=== PATIENT | male | born 1980 | race African-American/Black ===

== ENCOUNTER 2019-09-25 18:37 | Emergency (ER) | payer OTHER ==
[~2019-09-25] VITALS: Ht 182.9 cm; Wt 56.7 kg
[2019-09-25 18:40] VITALS: BP 128/80
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
--- NOTE | 2019-09-25 19:18 | NUR ---
Pt report given to CLEMENTINE Reddy. Transfer of care at this time.
--- NOTE | 2019-09-25 19:18 | NUR ---
ERMD AT BEDSIDE EVALUATING PT
--- NOTE | 2019-09-25 19:18 | NUR ---
Dr. Hunter examining patient.
[2019-09-25] MEDS ORDERED: KETOROLAC 60 MG/2 ML VIAL IM ONE (19:35)
--- NOTE | 2019-09-25 19:40 | NUR ---
PT TRANSPORTED TO [facility] VIA W/C.
--- NOTE | 2019-09-25 20:12 | NUR ---
ERMD AT BEDSIDE
--- NOTE | 2019-09-25 20:21 | NUR ---
pts left knee was placed in a carl wrap. pt was also given crutches. pt showed good use of crutches.
[2019-09-25 20:25] VITALS: BP 125/78
--- NOTE | 2019-09-25 20:25 | NUR ---
Patient discharged with v/s stable. Written and verbal after care instructions given and explained. Patient alert, oriented and verbalized understanding of instructions. Ambulatory with steady gait. All questions addressed prior to discharge. ID band removed. Patient advised to follow up with PMD. Rx of TRAMADOL AND MOTRIN given. Patient educated on indication of medication including possible reaction and side effects. Opportunity to ask questions provided and answered.
== END 2019-09-25 20:25 | disposition home or self-care (01) ==
LOC: MED 18:37
DX: S83.92XA Sprain of unspecified site of left knee, initial encounter (principal); I51.89 Other ill-defined heart diseases; J45.909 Unspecified asthma, uncomplicated; V19.9XXA Pedal cyclist (driver) (passenger) injured in unspecified traffic accident, initial encounter; Y93.I9 Activity, other involving external motion; Y92.89 Other specified places as the place of occurrence of the external cause; Y99.8 Other external cause status
CPT/HCPCS: 73562; 96372; 99283; J1885

== ENCOUNTER 2021-01-05 07:05 | Emergency (ER) | payer OTHER ==
[~2021-01-05] VITALS: Ht 182.9 cm; Wt 77.1 kg
[2021-01-05 07:07] VITALS: BP 146/90
--- NOTE | 2021-01-05 07:15 | NUR ---
PATIENT AMBULATED TO BED 7.
--- NOTE | 2021-01-05 07:30 | NUR ---
40 YO MALE BIBS WITH C/O RIGHT HAND LAC WOUND S/P ACCIDENTALLY CUT BY PIECES OF TABLE GLASS AT HOME X TODAY. 10/03 PAIN TO LAC SITE, THROBBING CONSTANT. ROM AND SENSATION INTACT. DENIES ANY OTHER MEDICAL PROBLEMS. A&OX4, VSS. PMH DENIES NKDA
[2021-01-05] MEDS ORDERED: LIDOCAINE MPF 1% 10 MG/ML VIAL INJ ONE (07:35)
--- NOTE | 2021-01-05 07:40 | NUR ---
MD CASTRO AT BEDSIDE FOR SUTURE PLACEMENT.
--- NOTE | 2021-01-05 08:05 | NUR ---
Patient discharged with v/s stable. Written and verbal after care instructions given and explained. Patient verbalized understanding. Ambulatory with steady gait. All questions addressed prior to discharge. Advised to follow up with PMD.
== END 2021-01-05 08:05 | disposition home or self-care (01) ==
LOC: MED 07:05
DX: S41.111A Laceration without foreign body of right upper arm, initial encounter (principal); W25.XXXA Contact with sharp glass, initial encounter; Y93.89 Activity, other specified; Y92.89 Other specified places as the place of occurrence of the external cause; Y99.8 Other external cause status
CPT/HCPCS: 12001; 99282; J2001

== ENCOUNTER 2021-01-15 06:29 | Emergency (ER) | payer OTHER ==
[~2021-01-15] VITALS: Ht 182.9 cm; Wt 77.1 kg
[2021-01-15 06:33] VITALS: BP 137/79
--- NOTE | 2021-01-15 06:33 | NUR ---
TO BED AMBULATORY
--- NOTE | 2021-01-15 06:41 | NUR ---
RECEIVED IN BED 4 WITH C/O LEFT HAND , WRIST , SWELLING, PAIN FOR 3 DAYS. 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 DENIES TRAUMA
--- NOTE | 2021-01-15 06:44 | NUR ---
Dr. Cat examining patient.
[2021-01-15] MEDS ORDERED: NAPR-54 PO (06:50)
--- NOTE | 2021-01-15 06:50 | NUR ---
PRE-MERARI SPLINT PLACED LEFT WRIST
[2021-01-15 06:54] VITALS: BP 137/79
== END 2021-01-15 06:54 | disposition home or self-care (01) ==
LOC: MED 06:29
DX: S63.502A Unspecified sprain of left wrist, initial encounter (principal); M65.4 Radial styloid tenosynovitis [de Quervain]; J45.909 Unspecified asthma, uncomplicated; Z79.899 Other long term (current) drug therapy; X58.XXXA Exposure to other specified factors, initial encounter; Y93.89 Activity, other specified; Y92.89 Other specified places as the place of occurrence of the external cause; Y99.0 Civilian activity done for income or pay
CPT/HCPCS: 99283

== ENCOUNTER 2021-02-11 03:55 | Emergency (ER) | payer OTHER ==
[~2021-02-11] VITALS: Ht 182.9 cm; Wt 78.0 kg
[~2021-02-11 03:55] MED LIST: NAPR-54 PO
[2021-02-11 04:01] VITALS: BP 128/75
--- NOTE | 2021-02-11 04:05 | NUR ---
PT TAKEN TO BED 6
--- NOTE | 2021-02-11 04:10 | NUR ---
PATIENT BIB SELF, STATES HE HAS HAD LEFT SIDE RIB PAIN FOR THE PAST 3 DAYS. RATES PAIN 6/10 BUT SOMETIMES IT BECOMES INTENSE TO A 10/10. PATIENT DENIES ANY TRAUMA TO THE AREA OR ANY TYPE OF FALL OR ACCIDENT. LEFT RIB INFLAMMATION / ELEVATED NOTED UPON LIGHT PALPATION, RIGHT SIDE NOTED TO BE NORMAL. PATIENT DENIES ANY SOB, N/V, OR OTHER SYMPTOMS. PMH: DENIES ANY PAST MEDICAL HISTORY OR SURGERIES.
--- NOTE | 2021-02-11 04:23 | NUR ---
Dr. Oviedo examining patient.
[2021-02-11] MEDS ORDERED: KETOROLAC 60 MG/2 ML VIAL IM ONE (04:25)
[2021-02-11] MEDS ORDERED: IBUP-2213 PO (04:31)
[2021-02-11 04:40] VITALS: BP 128/75
== END 2021-02-11 04:40 | disposition home or self-care (01) ==
LOC: MED 03:55
DX: S20.20XA Contusion of thorax, unspecified, initial encounter (principal); J45.909 Unspecified asthma, uncomplicated; F17.200 Nicotine dependence, unspecified, uncomplicated; Z79.899 Other long term (current) drug therapy; X58.XXXA Exposure to other specified factors, initial encounter; Y93.89 Activity, other specified; Y92.89 Other specified places as the place of occurrence of the external cause; Y99.8 Other external cause status
CPT/HCPCS: 96372; 99283; J1885

== ENCOUNTER 2021-03-15 11:14 | Emergency (ER) | payer OTHER ==
[~2021-03-15] VITALS: Ht 177.8 cm; Wt 76.7 kg
[~2021-03-15 11:14] MED LIST changes: +IBUP-2213 PO
[2021-03-15 11:38] VITALS: BP 121/77
--- NOTE | 2021-03-15 11:54 | NUR ---
PT AMBULATED TO BED 08 WITH STEADY GAIT
--- NOTE | 2021-03-15 12:02 | NUR ---
PT STATES HE IS UNABLE TO PROVIDE URINE AT THIS TIME. PA MADE AWARE
--- NOTE | 2021-03-15 12:13 | NUR ---
PT PROVIDED WITH WATER CUP, PER MARCO ALBERTO TO GIVE
--- NOTE | 2021-03-15 12:15 | NUR ---
PT C/O MID TO LOWER BACK PAIN THAT RADIATES TO LOWER EXTREMITIES X 5 DAYS. DENIES TRAUMA/INJURY. PT STATES 01/03 PAIN. MEDHX: ASTHMA NKA
--- NOTE | 2021-03-15 12:36 | NUR ---
PT TAKEN TO XRAY VIA W/C
[2021-03-15] MEDS ORDERED: ACET-8386 PO (13:26)
[2021-03-15] MEDS ORDERED: KETOROLAC 30 MG/ML VIAL IM ONE (13:30)
--- NOTE | 2021-03-15 13:33 | NUR ---
IM MEDS GIVEN
[2021-03-15 13:42] VITALS: BP 120/68
--- NOTE | 2021-03-15 13:43 | NUR ---
Patient discharged with v/s stable. Written and verbal after care instructions given and explained to parent/guardian. Parent/Guardian verbalized understanding of instructions. Ambulatory with steady gait. All questions addressed prior to discharge. ID band removed. Parent/Guardian advised to follow up with PMD. Rx of NORCO 5-325 given. Parent/Guardian educated on indication of medication including possible reaction and side effects. Opportunity to ask questions provided and answered.
== END 2021-03-15 13:42 | disposition home or self-care (01) ==
LOC: MED 11:14
DX: S39.012A Strain of muscle, fascia and tendon of lower back, initial encounter (principal); J45.909 Unspecified asthma, uncomplicated; I51.9 Heart disease, unspecified; F17.210 Nicotine dependence, cigarettes, uncomplicated
CPT/HCPCS: 72110; 81002; 96372; 99283; J1885

== ENCOUNTER 2021-06-07 21:48 | Emergency (ER) | payer OTHER ==
[~2021-06-07] VITALS: Ht 182.9 cm; Wt 74.8 kg
[~2021-06-07 21:48] MED LIST changes: +ACET-8386 PO
[2021-06-07 22:05] VITALS: BP 153/74
--- NOTE | 2021-06-07 22:10 | NUR ---
PT TAKEN TO LOBBY
[2021-06-07] MEDS: IBUPROFEN 800 MG TAB PO ONE (23:48)
[2021-06-07] MEDS: HYDROcodone/APAP 10/325 MG 1 TAB TAB PO ONE (23:49)
--- NOTE | 2021-06-07 23:53 | NUR ---
PT TAKEN TO 07 VIA W/C. Addendum: 06/07/21 at 8114 by MEDEB .
--- NOTE | 2021-06-08 00:45 | NUR ---
40 Y/O MALE BIB SELF WITH C/O LEFT KNEE PAIN. PT WAS PLAYING BASKETBALL AND FELL ON KNEE. PT DENIES HITTING HEAD, HAND OR ANY OTHER BODY PART. NO LOC, SOB, COUGH, CHEST PAIN. PT IS NON AMBULATORY. MUST USE CRUTCHES OR WHEELCHAIR. SLIGHT SWELLING TO LEFT KNEE NO ABRASIONS OR LACERATIONS NOTED. PT UNABLE TO MOVE, LIMITED FLEXIBILITY. PMH: NONE ALLERGIES: NONE
--- NOTE | 2021-06-08 01:45 | NUR ---
Patient appears to be resting comfortably in bed. Vital Signs within normal limits. Respirations even and unlabored.
[2021-06-08] MEDS ORDERED: IBUP-2213 PO (03:08)
[2021-06-08] MEDS ORDERED: HYDR-5080 PO (03:09)
[2021-06-08] MEDS ORDERED: ACET-8386 PO (03:10)
--- NOTE | 2021-06-08 03:13 | NUR ---
PT USED CRUTCHES TO GET TO BATHROOM.
[2021-06-08 03:20] VITALS: BP 150/70
--- NOTE | 2021-06-08 03:20 | NUR ---
Patient discharged with v/s stable. Written and verbal after care instructions given and explained. Patient alert, oriented and verbalized understanding of instructions. Ambulatory with steady gait. All questions addressed prior to discharge. ID band removed. Patient advised to follow up with PMD. Rx oF NORCO AND IBUPROFEN given. Opportunity to ask questions provided and answered.
== END 2021-06-08 03:20 | disposition home or self-care (01) ==
LOC: MED 21:48
DX: S89.92XA Unspecified injury of left lower leg, initial encounter (principal); F17.210 Nicotine dependence, cigarettes, uncomplicated; J45.909 Unspecified asthma, uncomplicated; Z79.899 Other long term (current) drug therapy; Z71.6 Tobacco abuse counseling; X58.XXXA Exposure to other specified factors, initial encounter; Y93.67 Activity, basketball; Y92.89 Other specified places as the place of occurrence of the external cause; Y99.8 Other external cause status
CPT/HCPCS: 73700; 99285

== ENCOUNTER 2023-04-19 23:14 | Emergency (ER) | payer MEDICAID ==
[~2023-04-19] VITALS: Ht 182.9 cm; Wt 77.1 kg
[~2023-04-19 23:14] MED LIST changes: -ACET-8386 PO; +ACET-8905 PO; +NAPR-1704 PO
[2023-04-19 23:20] VITALS: BP 132/74; PULSE 84; RESP 17; TEMP 98; O2SAT 99
[2023-04-20] MEDS ORDERED: IBUP-2213 PO (00:58)
[2023-04-20] MEDS ORDERED: IBUPROFEN 600 MG TAB PO ONE (01:00)
[2023-04-20] MEDS ORDERED: ACETAMINOPHEN EXTRA STRENGTH 500 MG TAB PO ONE (01:00)
[2023-04-20 01:15] VITALS: BP 122/76; PULSE 74; RESP 16; TEMP 98; O2SAT 99
== END 2023-04-20 01:15 | disposition home or self-care (01) ==
LOC: MED 23:14
DX: S83.92XA Sprain of unspecified site of left knee, initial encounter (principal); J45.909 Unspecified asthma, uncomplicated; Z79.1 Long term (current) use of non-steroidal anti-inflammatories (NSAID); Z79.899 Other long term (current) drug therapy; X58.XXXA Exposure to other specified factors, initial encounter; Y92.89 Other specified places as the place of occurrence of the external cause; Y93.89 Activity, other specified; Y99.8 Other external cause status
CPT/HCPCS: 29505; 73562; 99283